=== PATIENT | female | born 1990 | race Caucasian/White ===

== ENCOUNTER 2020-03-09 09:51 | Emergency (ER) | payer OTHER, SELFPAY ==
[2020-03-09 10:08] VITALS: BP 105/70; PULSE 90; RESP 18; TEMP 36.9; O2SAT 98
--- NOTE | 2020-03-09 10:17 | ED.BACK ---
HPI - Back Pain/Injury General Chief Complaint: Back Pain/Injury Stated Complaint: back pain Source: RN notes reviewed Limitations: no limitations History of Present Illness HPI Narrative: The overweight patient, non-smoker/nondrinker OR nurse, presents with low back pain. Patient states she has a couple day history of low back pain is mild, worse with motion, better at rest. No hematuria/frequency/dysuria, numbness/weakness, foot drop, radiating pain, injury, prior imaging. Symptoms are mild slightly better with physical therapy yesterday, and similar to previous episodes of back pain Related Data Allergies Allergy/AdvReac Type Severity Reaction Status Date / Time No Known Allergies Allergy Verified 03/09/20 10:09 Review of Systems Review of Systems: Narrative: General/Constitutional: No weight loss,fever Eyes: N0: Redness,discharge Ears/Nose/Throat: No: Epistaxis,ear discharge Respiratory: Denies: Hemoptysis Gastrointestinal: No Vomiting, Bleeding-rectal Skin: No Lumps, eruption Neurologic: No Focal Weakness,Sz Hematologic: Denies: Petechiae/Purpura Psychiatric: No: Suicida ideationl All Other Systems: Reviewed and Negative [facility] Comments At time of signature, agree with nursing past medical, surgical, social and family history. There is no relevant family history pertinent to the presenting complaint Exam Narrative: Exam Narrative: General Appearance: Well appearing, Conjunctiva clear Mouth/Throat: Normal lips, Supple Respiratory: Airway patent Abdomen: Soft, no CVAT Musculoskeletal: Normal strength (no footdrop, 5/5 : EH L-FHL, gastroc-AT, no saddle weakness) Spine/Back: Paraspinal muscle tender (with mild decreased range of motion; ) Skin: Normal color Neurological: A&O x3, CN II-XII intact, Normal reflexes (symmetric, 2+ KJ, trace AJ) Psychiatric: Normal mood Course Vital Signs Vital signs: Vital Signs Temperature 98.5 F 03/09/20 10:08 Pulse Rate 90 03/09/20 10:08 Respiratory Rate 18 03/09/20 10:08 Blood Pressure 105/70 03/09/20 10:08 Pulse Oximetry 98 03/09/20 10:08 Temperature 98.5 F 03/09/20 10:08 Pulse Rate 90 03/09/20 10:08 Respiratory Rate 18 03/09/20 10:08 Blood Pressure 105/70 03/09/20 10:08 Pulse Oximetry 98 03/09/20 10:08 Discharge Plan Discharge Clinical Impression: Strain of lumbar region Qualifiers: Encounter type: initial encounter Qualified Code(s): S39.012A - Strain of muscle, fascia and tendon of lower back, initial encounter Patient Disposition: Home, Self-Care Condition: Stable Instructions: Low Back Strain (ED) Prescriptions: New acetaminophen-codeine 300-30 mg tablet 1 tablet PO HS PRN (Reason: pain) Qty: 20 RF: 0 prednisone 20 mg tablet 60 mg PO DAILY Qty: 15 RF: 0 cyclobenzaprine 10 mg tablet 10 mg PO BID PRN (Reason: muscle spasm) Qty: 30 RF: 2 Follow-up/Referrals: PHYSICIAN,ELECTROMEDICAL SERVICE ENGINEER [Primary Care Provider] -
== END 2020-03-09 10:29 | disposition home or self-care (01) ==
PROVIDERS: Emergency Provider Emergency Medicine
DX: S39.012A Strain of muscle, fascia and tendon of lower back, initial encounter (principal); X58.XXXA Exposure to other specified factors, initial encounter
CPT/HCPCS: 99213; G0463